=== PATIENT | male | born 1935 | race Caucasian/White ===

== ENCOUNTER 2018-12-06 09:42 | Inpatient (IN) ==
[2018-12-06] MEDS ORDERED: NS 1,000 ML IV ONE ×2 (10:34→15:40)
--- NOTE | 2018-12-06 10:40 | PROVIDER DOCUMENTATION ---
HPI-General Adult - General Chief Complaint: Weakness Stated Complaint: WEAKNESS Time Seen by Provider: 12/06/18 10:17 Source: patient, family Allergies/Adverse Reactions: Patient Allergies Allergy/AdvReac Type Severity Reaction Status Date / Time No Known Allergies Allergy Verified 05/13/16 06:12 - History of Present Illness -Gen Adult Nature of Presenting Problems: Took a bath in the tub last night, emptied it of water and could not get out of the bathtub by himself and could not get help, estimated time 8 hours. No pain, no injury, no shivering, no symptoms prior to this except for chronic Parkinsons. Location of Pain/Injury: reports: none Pain Radiation: reports: no radiation Severity: reports: mild Context/Activities at Onset: reports: none Associated Symptoms: reports: denies symptoms Similar Symptoms Previously?: No Recently seen or treated by another doctor?: Yes (October, frequent falls) Review of Systems - Adult - REVIEW OF SYSTEMS - ADULT Constitutional: reports: no symptoms reported Eyes: reports: no symptoms reported Ears, Nose, Mouth & Throat: reports: no symptoms reported Cardiovascular: reports: no symptoms reported Respiratory: reports: no symptoms reported Gastrointestinal: reports: no symptoms reported Genitourinary: reports: no symptoms reported Musculoskeletal: reports: no symptoms reported Integumentary: reports: no symptoms reported Neurological: reports: no symptoms reported Psychiatric: reports: no symptoms reported Endocrine: reports: no symptoms reported Hematologic/Lymphatic: reports: no symptoms reported Allergic/Immunologic: reports: no symptoms reported All Other Systems: Reviewed and Negative Past History - Adult - PAST MEDICAL HISTORY-ADULT Review of Records: reports: Old Records Reviewed, Nursing Assessment Review, Medications Reviewed Major Childhood Illnesses: reports: denies history Cardiovascular: reports: denies history Respiratory: reports: denies history Gastrointestinal: reports: denies history Obstetrical/Gynecological: reports: denies history Genitourinary: reports: denies history Musculoskeletal: reports: denies history Neurological: reports: denies history Endocrine/Immune: reports: denies history Other Conditions: reports: denies history - IMMUNIZATION STATUS Childhood Immunizations: See Nurse Assessment Flu Vaccine: See Nurse Assessment - FAMILY HISTORY Family History: reviewed, not pertinent Physical Exam-General - PHYSICAL EXAM-ADULT Initial Vital Signs Reviewed: Yes - CONSTITUTIONAL General Appearance: appears well, alert, no apparent distress - EYES Eyes: PERRL/EOMI, pink conjunctivae - HEAD, EARS, NOSE, MOUTH & THROAT HENMT: moist mucous membranes - NECK Neck: supple - RESPIRATORY Respiratory: chest non-tender, lungs clear, normal breath sounds, no pleuratic chest pain, no respiratory distress, no accessory muscle use - CARDIOVASCULAR Cardiovascular: normal peripheral pulses, regular rate, rhythm, no murmur - GASTROINTESTINAL (ABDOMEN) Abdominal Exam: non tender, soft - LYMPHATIC Lymphatic: no adenopathy - MUSCULOSKELETAL Back Exam: normal inspection, no vertebral tenderness. negative: ecchymosis, swelling, vertebral tenderness Extremity: normal range of motion (at baseline, right handed), non-tender, normal inspection, no pedal edema, no calf tenderness, normal capillary refill Peripheral Pulses: radial (R): 2+, radial (L): 2+, dorsalis-pedis (R): 2+, dorsalis-pedis (L): 2+ - SKIN Integumentary: normal color, normal turgor, warm/dry, other (mild skin redness on upper buttocks near midline, no breakdown) - NEUROLOGIC Neurologic: grossly normal, no motor/sensory deficits - PSYCHIATRIC Psych/Mental Status: normal mood/affect, normal thought content, normal thought process, oriented x 3 Progress - PLAN OF CARE/RESULTS Progress/Plan/Lab Results: Vital Signs - 8 hr 12/06/18 09:40 Temperature 97.4 F L Pulse Rate 86 Respiratory Rate 11 L Blood Pressure 162/92 O2 Sat by Pulse Oximetry 95 Laboratory Results - last 24 hr 12/06/18 09:52 POC Glucose 102 Orders Category Date Time Status Saline Loc NOW Care 12/06/18 10:32 Ordered CHEST-PORTABLE [RAD] Stat Exams 12/06/18 10:34 Ordered CBC WITH ELECTRONIC DIFF [HEME] Stat Lab 12/06/18 10:32 Uncollected CK TOTAL [CHEM] Stat Lab 12/06/18 10:33 Uncollected COMPREHENSIVE METABOLIC PANEL [CHEM] Stat Lab 12/06/18 10:32 Uncollected LACTATE, PLASMA [CHEM] Stat Lab 12/06/18 10:33 Uncollected TROPONIN T Stat Lab 12/06/18 10:32 Uncollected URINALYSIS W/POSS RFLX CULT [URINALYSIS] Stat Lab 12/06/18 10:32 Uncollected Ns 1000 ml IV Bolus X1 Med 12/06/18 10:34 Ordered 0.9% Sodium Chloride Inj [Ns] 1,000 ml IV 999 mls/hr EKG [EKG] Stat Ther 12/06/18 10:32 Ordered CK elevated and slightly down after 1 liter of IVF, other labs unremarkable pt unable to ambulate at baseline or safely, family aware if he could not ambulate and be safe that he was getting admitted 1430 d/w PA hospitalist, HPI exam labs attempt to ambulate, agreed admit to Dr Hall Result Diagrams: 12/06/18 09:50 12/06/18 09:50 - EKG 1 Time of EKG reading by physician:: 09:49 EKG Read and Signed by:: Matilda Min EKG Interpretation (*Must complete 3 of following elements*): Abnormal Rate: 85 Rhythm: artifact from Parkinsons, suspect sinus arrhythmia [place]: right QRS: other (artifact too severe to get clear evaluation) ST Wave: non-specific ST changes Prior EKG Comparison: unchanged from prior Departure - Departure Date of Disposition Decision: 12/06/18 Time of Disposition Decision: 14:31 DIAGNOSIS: Weakness Disposition: ADMITTED INPATIENT 09 Certified Medical Emergency: Emergent Condition: Good Additional Freetext Instructions: admit to Dr Hall Referrals and Follow-Ups: Vladimir Rodriguez MD [Primary Care Provider] - - Critical Care Note This patient required my direct & personal management of CC.: No Attestation - Physician/ WILDA Attestation The physician spent face to face time with patient:: Yes Advanced Practice Provider documentation review:: Supervising physician onsite and consulted in the evaluation and care of this patient. The physician did have a face to face encounter with the patient.
[2018-12-06 10:42] LABS: BASO# 0.02 X1000 (0.0-0.2); BASO% 0.2 % (0.0-0.8); EOS# 0.05 X1000 (0.0-0.7); EOS% 0.5 % (0.0-10.0); HEMATOCRIT 43.9 % (42.0-52.0); IMM GRAN# 0.02 X1000 (0.0-0.04); IMM GRAN% 0.2 % (0.0-0.5); LYMPH# 0.66 X1000 (1.2-3.4); LYMPH% 6.4 % (20.5-51.1); MCHC 31.9 g/dL (33-37); MCV 91.1 FL (81-99); MONO# 0.86 X1000 (0.11-0.59); MONO% 8.3 % (1.7-9.3); NEUT# 8.74 X1000 (1.4-6.5); NEUT% 84.4 % (42.2-75.2); PLT 182 X1000 (130-400); RBC 4.82 XMIL (4.7-6.1); RDW 14.1 % (11.5-14.5); WBC 10.35 X1000 (4.8-10.8)
[2018-12-06 11:01] LABS: AGAP 13; ALB/GLOB RATIO 1.2; ALBUMIN 4.3 g/dL (3.5-5.0); ALKALINE PHOSPHATASE 91 U/L (32-122); BUN 23 mg/dL (8-22); CALCIUM 9.4 mg/dL (8.8-10.2); CHLORIDE 104 mmol/L (98-107); CK TOTAL 708 U/L (24-204); COSMO 290; ESTIMATED GFR > 60; GLUCOSE 89 mg/dL (70-104); GOT 36 U/L (10-34); GPT 22 U/L (10-44); POTASSIUM 4.4 mmol/L (3.5-5.1); SODIUM 144 mmol/L (136-145); TCO2 27 mmol/L (25-35); TOTAL BILIRUBIN 0.65 mg/dL (0.20-1.00); TOTAL PROTEIN 7.9 g/dL (6.3-8.3)
--- NOTE | 2018-12-06 11:17 | Diag Imaging Result Doc PS360 ---
EXAM: CHEST-PORTABLE - 12/06/2018 HISTORY: cough TECHNIQUE: Portable chest COMPARISON: None. FINDINGS: Heart size appears borderline enlarged. There are apparent mild COPD changes. There is a tiny right midlung granuloma from old granulomatous disease. There is no consolidation, pleural effusion, or pneumothorax identified. IMPRESSION: Borderline cardiomegaly. Mild COPD changes. No indication of pneumonia. Electronically signed by Sridhar Noel 12/06/2018 11:15 AM
[2018-12-06 11:50] LABS: URINE SOURCE CLEAN CATCH
[2018-12-06 11:52] LABS: BILIRUBIN URINE NEGATIVE (NEGATIVE); BLOOD URINE TRACE (NEGATIVE); COLOR YELLOW; GLUCOSE URINE NEGATIVE (NEGATIVE); KETONE URINE NEGATIVE (NEGATIVE); LEUKOCYTES URINE NEGATIVE (NEGATIVE); NITRITE URINE NEGATIVE (NEGATIVE); PH URINE 5.5; PROTEIN URINE TRACE mg/dL (NEGATIVE); SP GRAVITY URINE 1.012; TURBIDITY URINE CLEAR (CLEAR); UROBILINOGEN URINE NORMAL (NORMAL)
[2018-12-06 11:53] LABS: UR EPITHELIAL CELLS <10 /HPF (<10); URINE BACTERIA NEGATIVE /HPF; URINE RBC <10 /HPF (<10); URINE WBC <10 /HPF (<10)
[2018-12-06 16:15] LABS: FREE T4 1.12 ng/dL (0.93-1.70); TSH 4.48 uIUmL (0.27-4.20)
--- NOTE | 2018-12-06 16:42 | Diag Imaging Result Doc PS360 ---
EXAM: CT HEAD W/O CONTRAST - 12/06/2018 HISTORY: altered mentation TECHNIQUE: CT head without contrast COMPARISON: 10/15/2018 FINDINGS: There are moderate chronic microvascular ischemic changes similar to prior. There is no indication of recent infarct, although acute infarcts may not be immediately visible. There are some atherosclerotic calcifications noted at the base the brain. There is no evidence of intracranial hemorrhage, mass effect, midline shift, or hydrocephalus. IMPRESSION: Chronic microvascular ischemic changes. No visible acute intracranial abnormality. This exam was performed using automated exposure control, adjustment of mA or kV according to patient size, and/or use of iterative reconstruction technique. Electronically signed by Sridhar Noel 12/06/2018 4:40 PM
--- NOTE | 2018-12-06 16:53 | HISTORY AND PHYSICAL ---
PRIMARY CARE PROVIDER: Dr. Vladimir Rodriguez. CHIEF COMPLAINT: Weakness. HISTORY OF PRESENT ILLNESS: Mr. Cabrera is a very pleasant 83-year-old male with a history of Parkinson's disease, coronary artery disease, and hypertension, who presents to the ER after being essentially stuck in his own bathtub since around 11:00 last night. Details of the events leading up to his admission are extremely limited at this point. The patient has significant dementia and, unfortunately, his at the bedside is a poor historian as well. He took a bath last night at around 11:00 p.m. When he let the water out he could not get up out of the bathtub and his could not help him. At some point, she wanted to call 911 to help him out, but he refused, so he was in the bathtub for the better part of eight hours. At some point in the chemical etch operator, his states that he got out of the bathtub, walked into the bedroom, and said call 911, however, the patient states that at no point did he ever get out of the bathtub and that EMS had to assist him out. He denies any overt pain, no shortness of breath, fever, chills, or cough. No abdominal pain, nausea, vomiting, or diarrhea. For the most part , he is in his normal state of health. However, when they tried to ambulate him in the ER, he was unable to walk and it was felt that discharge would not be safe to go home, so we will admit him for further treatment and evaluation. Labs were done and found to be within normal limits and chest x-ray did not show anything acute. We are ordering CT of the head. PAST MEDICAL HISTORY: 1. Parkinson's disease. 2. Hypertension. 3. Coronary artery disease, status post [place] with two stents. 4. Hyperlipidemia. 5. It is possible that he has more comorbidities but at this time history is extremely unclear, they did not bring any medications with them and there is no real history in the chart. SURGICAL HISTORY: He has had lumbar spine surgery and coronary stenting. Again, there could be more, but history is extremely difficult at this time. SOCIAL HISTORY: He does not smoke, drink, or use illicit substances. His is at the bedside. There is also a fellow churchgoer that has accompanied them. FAMILY HISTORY: Noncontributory. REVIEW OF SYSTEMS: Extremely limited, but a 10-point review of systems was obtained and found to be negative with the exception of the HPI. ALLERGIES: No known drug allergies. HOME MEDICATIONS: Unknown. PHYSICAL EXAMINATION: VITAL SIGNS: Blood pressure 162/92, heart rate is 83, respiratory rate is 19, O2 saturation is 95% on room air. Temperature is 97.3. GENERAL: This is a chronically ill, elderly and frail appearing 83-year-old male, lying in hospital bed in no acute distress. NEUROLOGIC: The patient is disoriented to place and time. He is able to tell us his name and his 's name. He does follow commands with generalized weakness but no focal deficits noted. HEENT: Head is atraumatic and normocephalic. Pupils are equal, round and reactive to light. Oral mucosa is dry. NECK: Trachea is midline. There is no JVD. CHEST: Clear to auscultation. CARDIOVASCULAR: Regular rate and rhythm. S1 and S2 is noted. A 2/6 murmur appreciated. GASTROINTESTINAL: Soft, nondistended and nontender. Bowel sounds positive. EXTREMITIES: No edema. Pulses are diminished at 1+ bilaterally. DIAGNOSTIC DATA: Chest x-ray is negative. WBC 10.35, hemoglobin 14, hematocrit 43.9, platelet count 182. Sodium 144, potassium 4.4, chloride 104, CO2 27, anion gap 13, BUN 23, creatinine 1, glucose is 89, calcium 9.4, total bilirubin 0.65, AST 36, ALT 22, alkaline phosphatase 91. CK 702. Albumin 4.3. Lactic acid 1.3. UA is negative. ASSESSMENT AND PLAN: 1. Generalized weakness with inability to ambulate: We will check a head CT, however it is likely this represents overall deconditioning and progression of his Parkinson's disease. We will also make sure and check his thyroid function, his B12, and his folate. Will lightly hydrated as he does appear volume depleted. 2. Mild rhabdomyolysis: CK is noted to be in the 700s. Will continue to trend both troponin and CK. Lightly hydrated. 3. History of coronary artery disease: The patient denies chest pain. Will order an EKG and trend cardiac enzymes. Make sure he is on aspirin and get his home medications. 4. Parkinson's: Will continue his home medications once they have been reconciled. 5. Disposition: The patient is extremely unsafe to discharge home. He reports that he has had at least 35 falls over the last year and it is clear that his is unable to help. We will consult Social Work for possible placement and Physical Therapy for evaluation as well. 6. Deep venous thrombosis prophylaxis with sequential compression devices. Further recommendations to follow. Dictated by ODETTE Chang for Ace Tilley MD cc: ODETTE Chang MD MTDD
[2018-12-06] MEDS ORDERED: FLU VACCINE IM ONE (17:05)
[2018-12-06 17:10] LABS: CK INDEX 2.8 (0.0-2.5); CK-MB 17.34 ng/mL (0.0-5.0)
[2018-12-06 23:28] LABS: CK INDEX 2.2 (0.0-2.5); CK-MB 18.48 ng/mL (0.0-5.0)
[2018-12-07 04:41] LABS: HEMATOCRIT 38.4 % (42.0-52.0); HEMOGLOBIN 12.3 g/dL (14.0-18.0); MCH 29.2 PG (27-31); MCV 91.2 FL (81-99); MPV 10.6 FL (7.4-10.4); RBC 4.21 XMIL (4.7-6.1); RDW 13.8 % (11.5-14.5); WBC 6.61 X1000 (4.8-10.8)
[2018-12-07 05:04] LABS: AGAP 12; BUN 18 mg/dL (8-22); CALCIUM 8.9 mg/dL (8.8-10.2); CHLORIDE 106 mmol/L (98-107); COSMO 286; CREATININE 0.8 mg/dL (0.7-1.2); ESTIMATED GFR > 60; GLUCOSE 75 mg/dL (70-104); MAGNESIUM 1.8 mg/dL (1.5-2.7); POTASSIUM 3.8 mmol/L (3.5-5.1); SODIUM 143 mmol/L (136-145); TCO2 25 mmol/L (25-35)
[2018-12-07] MEDS: TYLENOL PO PRN (05:22)
[2018-12-07 05:41] LABS: CK INDEX 2.2 (0.0-2.5); CK-MB 18.85 ng/mL (0.0-5.0)
--- NOTE | 2018-12-07 09:00 | EKG Report ---
Test Performed on : 12/06/2018 09:46:31 AM Test Reason : syncope Blood Pressure : / mmHG Vent. Rate : 085 BPM Atrial Rate : 394 BPM P-R Int : 000 ms QRS Dur : 112 ms QT Int : 396 ms P-R-T Axes : 000 112 -13 degrees QTc Int : 471 ms Atrial fibrillation. with premature ventricular or aberrantly conducted complexes. Right axis deviation Septal infarct (cited on or before 13-MAY-2016) T wave abnormality, consider inferior ischemia Abnormal ECG When compared with ECG of 13-MAY-2016 06:05, Significant changes have occurred Unconfirmed Result
[2018-12-07] MEDS: NS 1,000 ML IV SCH (17:04)
--- NOTE | 2018-12-07 18:54 | PROGRESS NOTE ---
DATE: 12/07/2018 INTERVAL HISTORY: The patient remains globally weak, but otherwise largely asymptomatic. Still a poor historian, but no obvious confusion at this point. No acute events overnight. No new complaints. He does state that he is frequently noncompliant with his medications at home, which may be part of why he has such poor recall of what he takes. REVIEW OF SYSTEMS: Twelve point review of systems negative except as per interval history. LABS: WBC 6.6, hemoglobin 12.3, hematocrit 30.4, platelets 173,000. Basic metabolic panel unremarkable. CK 844, CK-MB 18.85. Troponin 0.062. IMAGING: Head CT with chronic microvascular changes, but no acute abnormality. Chest x-ray mild COPD changes. Borderline cardiomegaly, but no acute process. VITALS: T-max 98.5, pulse 73, respirations 20, blood pressure 140/86. O2 sat 96% on room air. PHYSICAL EXAMINATION: General: No acute distress, thin. Vitals: As above. HEENT: Normocephalic, atraumatic. Moist mucous membranes. Slightly dry mucous membranes. No cervical adenopathy. Cardiovascular: Regular rate and rhythm. No murmurs, rubs or gallops. Pulmonary: Clear to auscultation bilaterally. No wheezing, rales or rhonchi noted. Abdomen: Soft, nontender, nondistended. Bowel sounds positive. Extremities: Peripheral pulses decreased but intact. No clubbing, cyanosis or edema. Neurologic: Cranial nerves grossly intact. Significant global weakness, but no focal deficit identified. Psychiatric: Normal mood and affect. Awake, alert. He is now oriented x 3. Following commands well. Skin: No new rashes or lesions identified. ASSESSMENT AND PLAN: 1. Mild rhabdomyolysis likely secondary to being down in a tub for several hours. CK remains mildly elevated. We will continue to trend CK and continue IV fluids. 2. Generalized weakness with inability to ambulate. Head CT unremarkable. No focal deficits identified. Patient reports fairly poor functional status at baseline with worsening over the last few days to weeks. Suspect deconditioning and progression of his Parkinson' s. Laboratory evaluation with folate thyroid studies unremarkable. Chest x-ray and urinalysis without evidence of infection. No leukocytosis, or other sign of infection. We are getting Physical Therapy to evaluate him and IV fluids as above. Suspect he will need rehab and possibly long-term placement. 3. Parkinson's. Have not yet been able to obtain his full home med list, but will restart his home Parkinson's meds as soon as they can be identified. 4. Coronary artery disease. Remote history of 2 stents. Exact date unknown. Starting on aspirin which he is likely taking at home, although he is uncertain what he takes. 5. Likely COPD. Patient unaware of a previous diagnosis of COPD, but is a former smoker who quit many, many years ago and imaging suggests COPD. 6. DVT prophylaxis. SCDs. DISPOSITION: Likely to SNF when placement can be obtained if CK trends down and no other issues arise. TRACEY
[2018-12-07] MEDS: TOPROL XL PO SCH (19:30)
[2018-12-07] MEDS: SINEMET 25/100 PO SCH (19:30)
[2018-12-07] MEDS: LIPITOR PO SCH (20:24)
[2018-12-08] MEDS: PATIENT'S OWN MED PO SCH (01:18)
[2018-12-08 06:09] LABS: HEMATOCRIT 39.9 % (42.0-52.0); HEMOGLOBIN 12.8 g/dL (14.0-18.0); MCH 29.1 PG (27-31); MCHC 32.1 g/dL (33-37); MCV 90.7 FL (81-99); MPV 10.5 FL (7.4-10.4); RBC 4.4 XMIL (4.7-6.1); RDW 13.8 % (11.5-14.5); WBC 6.4 X1000 (4.8-10.8)
[2018-12-08 06:24] LABS: AGAP 11; BUN 19 mg/dL (8-22); CALCIUM 8.7 mg/dL (8.8-10.2); CHLORIDE 105 mmol/L (98-107); COSMO 279; CREATININE 0.8 mg/dL (0.7-1.2); ESTIMATED GFR > 60; GLUCOSE 88 mg/dL (70-104); MAGNESIUM 1.8 mg/dL (1.5-2.7); POTASSIUM 3.7 mmol/L (3.5-5.1); SODIUM 139 mmol/L (136-145); TCO2 23 mmol/L (25-35)
[2018-12-08] MEDS: NS 1,000 ML IV SCH ×3 (07:02→18:53)
[2018-12-08] MEDS: SINEMET 25/100 PO SCH (09:15)
[2018-12-08] MEDS: ASPIRIN PO SCH (09:15)
[2018-12-08] MEDS: TOPROL XL PO SCH (09:15)
[2018-12-08] MEDS: ZOLOFT PO SCH (09:15)
--- NOTE | 2018-12-08 13:54 | PROGRESS NOTE ---
DATE: 12/08/2018 SUBJECTIVE: Patient continues to feel weak. Not really any complaints. He is a poor historian. No acute issues overnight noted as per nursing staff. OBJECTIVE: Vital Signs: Temperature 98.4, heart rate 70, respiratory rate 14, blood pressure 153/84, O2 saturation 97% on room air. General Examination: This is a chronically ill-looking 83- year-old male, lying in bed, in no acute distress. Cardiovascular: S1, S2 heard. No murmurs, gallops, or rubs. Regular rate and rhythm. Respiratory: Clear bilaterally to auscultation. No work of breathing or using accessory muscles. Abdomen: Soft. Nontender to palpation. Bowel sounds present. No organomegaly. Extremities: No clubbing, cyanosis, or edema. Peripheral pulses present in both legs. Neurological: Patient is alert , oriented x3. Moves 4 extremities. LABORATORY DATA: Reviewed. ASSESSMENT AND PLAN: 1. Mild rhabdomyolysis, likely secondary to being down on a tub for several hours the day before yesterday, and yesterday CK was really mildly elevated. The patient is on gentle IV hydration with normal saline at 75 mL per hour. We will continue with same management. 2. General weakness with inability to ambulate. I think that is secondary to Parkinson's disease and also physical deconditioning at this point. Physical Therapy has been consulted, who is working with this patient. Definitely he needs to go to rehabilitation with possibly after that long-term placement. fairing worker has been consulted. 3. Parkinson's disease. Patient is on home medications. We will continue with same management. 4. Coronary artery disease with history of 2 stents placed. The patient is on aspirin. No chest pain reported. We will continue with same management. 5. Chronic obstructive pulmonary disease (COPD). Patient is receiving breathing treatments p.r.n. to shortness of breath. We will continue with same management. 6. Deep vein thrombosis (DVT) prophylaxis. Patient on SCDs. DISPOSITION: I think at this point we are awaiting for social work coordinator to find a rehabilitation bed for him. cc: Kash Cast MD [facility] CENTERLemuel
[2018-12-08] MEDS ORDERED: STERILE WATER INJ. INJ PRN (16:51)
[2018-12-08] MEDS ORDERED: GEODON IM PRN (16:51)
[2018-12-08] MEDS: LIPITOR PO SCH (22:20)
[2018-12-08] MEDS: TYLENOL PO PRN (22:20)
[2018-12-09] MEDS: NS 1,000 ML IV SCH ×2 (04:41→06:09)
[2018-12-09 06:10] LABS: HEMATOCRIT 37.7 % (42.0-52.0); HEMOGLOBIN 12.2 g/dL (14.0-18.0); MCH 29.4 PG (27-31); MCHC 32.4 g/dL (33-37); MCV 90.8 FL (81-99); MPV 10.5 FL (7.4-10.4); RBC 4.15 XMIL (4.7-6.1); RDW 13.9 % (11.5-14.5); WBC 7.01 X1000 (4.8-10.8)
[2018-12-09 06:30] LABS: AGAP 11; BUN 15 mg/dL (8-22); CALCIUM 8.7 mg/dL (8.8-10.2); CHLORIDE 107 mmol/L (98-107); COSMO 282; CREATININE 0.8 mg/dL (0.7-1.2); ESTIMATED GFR > 60; GLUCOSE 99 mg/dL (70-104); MAGNESIUM 1.8 mg/dL (1.5-2.7); POTASSIUM 3.6 mmol/L (3.5-5.1); SODIUM 141 mmol/L (136-145); TCO2 23 mmol/L (25-35)
[2018-12-09] MEDS ORDERED: SYNTHROID PO SCH (07:00)
[2018-12-09] MEDS ORDERED: COZAAR PO SCH (09:00)
[2018-12-09] MEDS: PATIENT'S OWN MED PO SCH ×2 (09:50→09:55)
[2018-12-09] MEDS: ASPIRIN PO SCH ×2 (09:50→09:54)
[2018-12-09] MEDS: TOPROL XL PO SCH (09:52)
[2018-12-09] MEDS: ZOLOFT PO SCH (09:54)
[2018-12-09] MEDS: SINEMET 25/100 PO SCH (09:54)
[2018-12-09 11:24] VITALS: BP 139/88
--- NOTE | 2018-12-09 11:51 | DISCHARGE SUMMARY ---
ADMISSION DATE: 12/06/2018 DISCHARGE DATE: 12/09/2018 CONSULTATIONS: None. PERTINENT PROCEDURES: 1. Chest x-ray: Borderline cardiomegaly, mild COPD changes. No indication of pneumonia. 2. Head CT: Chronic microvascular ischemic changes. No visible acute intracranial abnormality. DISCHARGE DIAGNOSES: 1. Mild rhabdomyolysis likely secondary to being down in the tub for several hours the day before admission. He has received gentle hydration with IV fluids. 2. General weakness with inability to ambulate secondary to Parkinson's, as well as physical deconditioning. Physical Therapy was consulted and they recommend rehab. He has been accepted and will be discharged there today. 3. Parkinson's disease. Continue home medications. 4. Coronary artery disease with history of 2 stents placed. He is on aspirin. No complaints of chest pain. 5. Chronic obstructive pulmonary disease without exacerbation. He will continue his home breathing treatments. HOSPITAL COURSE: Briefly, Mr. Cabrera is an 83-year-old male with a history of Parkinson's disease, coronary artery disease status post stenting, hypertension , who presented to the ED after being stuck in his bathtub around 11 p.m. the night prior to admission. We could not get the exact details secondary to the patient's dementia. His is at the bedside with him and was as well a poor historian. He states he took a bath around 11 p.m. last night. When he let the water out, he could not get out of the bathtub and his could not help him. At some point, she wanted to call 911. However, he refused, so he was in the bathtub for better part of 8 hours. At that point, she states he got out of the bathtub, walked to the bedroom and said, "call 911. However, per the patient, he never was able to get out of the bathroom and that EMS had to assist him out. He was found to be in mild rhabdomyolysis. He had elevated CK in the 700s. They continued to trend those and lightly hydrated him over his hospital course. He has worked with physical therapy. They recommend rehab and he will be discharged there today. VITAL SIGNS: Temperature is 98.6 degrees, heart rate 71, respirations 18, blood pressure 139/88, O2 saturation is 96% on room air. DISCHARGE DIET: Regular. DISCHARGE MEDICATIONS: 1. Aspirin 81 mg p.o. daily. 2. Lipitor 40 mg p.o. daily. 3. Carbidopa-levodopa 25-100, 1 each p.o. daily. 4. Synthroid 75 mcg p.o. daily. 5. Cozaar 25 p.o. daily. 6. Toprol-XL 50 mg p.o. daily. 7. Azilect 1 mg p.o. daily. 8. Zoloft 100 mg p.o. daily. 9. Seroquel 50 mg p.o. at bedtime. 10. Tylenol 650 mg p.o. q.6 hours p.r.n. FOLLOW-UP: Mr. Cabrera is being discharged to rehab. He will follow up with his primary care provider, Dr. Vladimir Rodriguez. After rehab, he can return to the ED or call 911 for any worsening of symptoms. Dictated by ODETTE Acharya for Kash Cast MD Addendum: Patient seen and examined by myself. Agree with ODETTE note. It reflects my assessment and plan. Patient is being discharged from hospital in stable condition to rehab facility. Will be seen by primary care doctor after discharged from rehab. cc: MD Vladimir Snow MD MTDD
== END 2018-12-09 13:24 | DRG 558 ==
LOC: SUPCPDRO → ED 09:42 → SUATTDRO 16:23 → 4N 16:23
PROVIDERS: ATTEND Internal Medicine
CPT/HCPCS: 70450; 71010; 71045; 80048; 80053; 81001; 82550; 82553; 82746; 82948; 83605; 83735; 84439; 84443; 84484; 85025; 85027; 85651; 93005; 96360; 96361; 97162; 97530; 99285; A9270; J3486; J7030; XXXXX